=== PATIENT | male | born 1995 | race African-American/Black ===

== ENCOUNTER 2017-06-01 16:35 | Inpatient (IN) | payer BC ==
[~2017-06-01] VITALS: Ht 188 cm; Wt 80.5 kg
[2017-06-01 20:30] VITALS: BP 134/88
[2017-06-01 21:00] VITALS: BP 138/77
[2017-06-01] MEDS ORDERED: TRAMADOL 50MG TABLET PO PRN (21:00)
[2017-06-01] MEDS ORDERED: ONDANSETRON HCL 4MG/2ML VIAL IV PRN (21:00)
[2017-06-01] MEDS ORDERED: DOCUSATE SODIUM 100MG CAPSULE PO PRN (21:58)
[2017-06-01 22:00] VITALS: BP 115/62
[2017-06-01] MEDS ORDERED: ACETAMINOPHEN 650MG/20.3ML UDC PO PRN (22:00)
[2017-06-01] MEDS: LEVETIRACETAM 500MG TABLET PO SCH (22:54)
[2017-06-01 23:00] VITALS: BP 112/65
[2017-06-01] MEDS: ACETAMINOPHEN 325MG TABLET PO PRN (23:13)
[2017-06-02] VITALS (26 sets, daily range): BP systolic 110–155; BP diastolic 54–92
[2017-06-02 06:00] LABS: BASOPHILS % 0.6 % (0.0-2.0); EOSINOPHILS % 3.8 % (0.0-5.0); HEMATOCRIT. 40.3 % (42.0-52.0); HEMOGLOBIN. 14.1 g/dL (14.0-18.0); LYMPHOCYTES % 25.7 % (20.0-50.0); MEAN CORPUSCULAR HEMOGLOBIN 29.9 pg (28.0-32.0); MEAN CORPUSCULAR VOLUME 85.2 fL (80.0-94.0); MEAN PLATELET VOLUME 8.8 fl (7.4-10.4); MONOCYTES % 12.2 % (2.0-8.0); NEUTROPHILS % 57.7 % (40.0-76.0); PLATELET 238 x1000/uL (130-400); RED BLOOD CELL COUNT 4.72 mill/uL (4.7-6.1); RED CELL DISTRIBUTION WIDTH 12.3 % (11.6-14.6)
[2017-06-02 06:06] LABS: INR 1.1; PROTHROMBIN TIME 11.8 sec (9.4-11.6)
[2017-06-02 06:25] LABS: CARBON DIOXIDE 28 mEq/L (21-32); CHLORIDE 107 mEq/L (98-107)
[2017-06-02 07:47] LABS: PHOSPHORUS 3.6 mg/dL (2.5-4.9)
[2017-06-02] MEDS: ENOXAPARIN 40MG/0.4ML SYR SUBCUT SCH (08:04)
[2017-06-02] MEDS: FAMOTIDINE 20MG/2ML VIAL IV SCH (08:10)
[2017-06-02] MEDS: LEVETIRACETAM 500MG TABLET PO SCH ×2 (08:10→20:44)
[2017-06-02] MEDS: IPRATROPIUM/ALBUTEROL 0.5-3(2.5)MG/3ML NEB HHN SCH ×3 (08:59→20:38)
[2017-06-02 10:33] LABS: T4 FREE 1.29 ng/dL (0.76-1.46)
[2017-06-02] MEDS ORDERED: NICARDIPINE 100MCG/ML 10ML VIAL (CATH LAB) IV ONE (13:50)
[2017-06-02] MEDS ORDERED: NITROGLYCERIN 50MCG/ML 10ML VIAL (CATH LAB) IV ONE (13:50)
[2017-06-02] MEDS ORDERED: IOHEXOL-300 100 ML BOTTLE ONE (14:06)
[2017-06-02] MEDS ORDERED: LIDOCAINE HCL 1% 20ML VIAL (Pyxis) INJ ONE (14:06)
[2017-06-02] MEDS ORDERED: MIDAZOLAM HCL 2 MG/2 ML VIAL ONE ×2 (14:13→14:35)
[2017-06-02] MEDS ORDERED: FENTANYL CITRATE/PF 50MCG/ML 2ML VIAL ONE (14:13)
[2017-06-02] MEDS ORDERED: HEPARIN SODIUM 1,000 UNIT/1ML VIAL IV ONE (14:17)
[2017-06-02] MEDS ORDERED: ATROPINE SULFATE 0.1MG/ML 10ML DISP.SYRIN ONE (14:21)
[2017-06-02] MEDS ORDERED: SODIUM CHLORIDE 0.45% 1,000 ML IV SCH (15:15)
[2017-06-02] MEDS ORDERED: ATROPINE SULFATE 1MG/10ML SYR IV PRN (15:15)
[2017-06-02] MEDS ORDERED: ACETAMINOPHEN 325MG TABLET PO PRN (15:15)
[2017-06-02] MEDS: ACETAMINOPHEN 325MG TABLET PO PRN (19:47)
[2017-06-03] VITALS (31 sets, daily range): BP systolic 97–158; BP diastolic 24–104
[2017-06-03] MEDS: IPRATROPIUM/ALBUTEROL 0.5-3(2.5)MG/3ML NEB HHN SCH ×4 (01:04→22:38)
[2017-06-03 06:21] LABS: BASOPHILS % 0.4 % (0.0-2.0); EOSINOPHILS % 3.5 % (0.0-5.0); HEMATOCRIT. 43.4 % (42.0-52.0); MEAN CORPUSCULAR HEMOGLOBIN 29.7 pg (28.0-32.0); MEAN PLATELET VOLUME 8.6 fl (7.4-10.4); MONOCYTES % 11.8 % (2.0-8.0); NEUTROPHILS % 60.3 % (40.0-76.0); PLATELET 262 x1000/uL (130-400); RED BLOOD CELL COUNT 5.04 mill/uL (4.7-6.1); RED CELL DISTRIBUTION WIDTH 12.3 % (11.6-14.6)
[2017-06-03 06:25] LABS: CARBON DIOXIDE 28 mEq/L (21-32); CHLORIDE 103 mEq/L (98-107)
[2017-06-03] MEDS: FAMOTIDINE 20MG/2ML VIAL IV SCH (08:12)
[2017-06-03] MEDS: LEVETIRACETAM 500MG TABLET PO SCH ×2 (08:12→21:53)
[2017-06-03] MEDS: ENOXAPARIN 40MG/0.4ML SYR SUBCUT SCH (08:19)
[2017-06-04] VITALS (29 sets, daily range): BP systolic 69–152; BP diastolic 26–108
[2017-06-04] MEDS: IPRATROPIUM/ALBUTEROL 0.5-3(2.5)MG/3ML NEB HHN SCH ×4 (02:22→20:45)
[2017-06-04] MEDS: LEVETIRACETAM 500MG TABLET PO SCH ×2 (08:04→22:25)
[2017-06-04] MEDS: ENOXAPARIN 40MG/0.4ML SYR SUBCUT SCH (08:06)
[2017-06-04] MEDS: FAMOTIDINE 20MG/2ML VIAL IV SCH (08:12)
[2017-06-04 08:53] LABS: BASOPHILS % 0.7 % (0.0-2.0); EOSINOPHILS % 2.9 % (0.0-5.0); HEMATOCRIT. 46.4 % (42.0-52.0); HEMOGLOBIN. 16.2 g/dL (14.0-18.0); LYMPHOCYTES % 15.6 % (20.0-50.0); MEAN CORPUSCULAR VOLUME 86.1 fL (80.0-94.0); MONOCYTES % 10.7 % (2.0-8.0); NEUTROPHILS % 70.1 % (40.0-76.0); RED BLOOD CELL COUNT 5.39 mill/uL (4.7-6.1); RED CELL DISTRIBUTION WIDTH 12.6 % (11.6-14.6)
[2017-06-04 09:07] LABS: PHOSPHORUS 2.8 mg/dL (2.5-4.9)
[2017-06-04 09:56] LABS: CARBON DIOXIDE 21 mEq/L (21-32); CHLORIDE 103 mEq/L (98-107)
[2017-06-04] MEDS ORDERED: ONDANSETRON HCL 4MG/2ML VIAL IV PRN (10:45)
[2017-06-04] MEDS ORDERED: MEPERIDINE HCL/PF 25MG/ML CPJ IV PRN (10:45)
[2017-06-04] MEDS ORDERED: LABETALOL 5MG/ML SYR 20 MG/4 ML SYRINGE IV PRN (10:45)
[2017-06-04] MEDS ORDERED: HYDROMORPHONE HCL/PF 2MG/ML CPJ IV PRN (10:45)
[2017-06-04 10:58] LABS: MEAN PLATELET VOLUME 8.1 fl (7.4-10.4); PLATELET 313 x1000/uL (130-400)
[2017-06-04 10:59] LABS: PLATELET ESTIMATE NORMAL
[2017-06-04] MEDS ORDERED: LIDOCAINE HCL 1% 20ML VIAL (Pyxis) INJ ONE ×2 (11:58→13:50)
[2017-06-04] MEDS ORDERED: CEFAZOLIN 1000MG PREMIX 100 ML IV ONE (11:58)
[2017-06-04] MEDS ORDERED: GENTAMICIN SULF 40MG/ML 2ML VIAL ONE (11:58)
[2017-06-04] MEDS ORDERED: GENTAMICIN/NS IRRIGATION 500 ML IR ONE (12:00)
[2017-06-04] MEDS ORDERED: FENTANYL CITRATE/PF 50MCG/ML 2ML VIAL ONE (12:27)
[2017-06-04] MEDS ORDERED: MIDAZOLAM HCL 2 MG/2 ML VIAL ONE (12:27)
[2017-06-04] MEDS ORDERED: DEXAMETHASONE 4MG/ML 1ML VIAL ONE (12:50)
[2017-06-04] MEDS ORDERED: ONDANSETRON HCL 4MG/2ML VIAL ONE (12:50)
[2017-06-04] MEDS ORDERED: HYDROMORPHONE HCL/PF 2MG/ML (OR) ONE (13:14)
[2017-06-04] MEDS ORDERED: EPHEDRINE SULFATE 50MG/ML VIAL ONE (14:47)
[2017-06-04] MEDS ORDERED: GLYCOPYRROLATE 0.2 MG/ML 2ML VIAL ONE (15:25)
[2017-06-04] MEDS ORDERED: NEOSTIGMINE METHYLSULFATE 1MG/ML 10 ML VIAL ONE (15:25)
[2017-06-04] MEDS ORDERED: NALOXONE INJ IV PRN (16:15)
[2017-06-04] MEDS ORDERED: HYDROMORPHONE PCA 10MG/50ML IV PRN (16:15)
[2017-06-04] MEDS ORDERED: ONDANSETRON INJ IV PRN (16:15)
[2017-06-04] MEDS ORDERED: DIPHENHYDRAMINE INJ IV PRN (16:15)
[2017-06-05] VITALS (28 sets, daily range): BP systolic 102–139; BP diastolic 48–82
[2017-06-05] MEDS: IPRATROPIUM/ALBUTEROL 0.5-3(2.5)MG/3ML NEB HHN SCH ×3 (01:53→20:07)
[2017-06-05 04:37] LABS: BASOPHILS % 0.2 % (0.0-2.0); EOSINOPHILS % 0.9 % (0.0-5.0); HEMATOCRIT. 42.9 % (42.0-52.0); HEMOGLOBIN. 15.1 g/dL (14.0-18.0); LYMPHOCYTES % 14.2 % (20.0-50.0); MEAN CORPUSCULAR HEMOGLOBIN 30.4 pg (28.0-32.0); MEAN CORPUSCULAR VOLUME 86.3 fL (80.0-94.0); MEAN PLATELET VOLUME 7.9 fl (7.4-10.4); MONOCYTES % 11.6 % (2.0-8.0); NEUTROPHILS % 73.1 % (40.0-76.0); PLATELET 298 x1000/uL (130-400); RED BLOOD CELL COUNT 4.98 mill/uL (4.7-6.1); RED CELL DISTRIBUTION WIDTH 12.5 % (11.6-14.6)
[2017-06-05 05:01] LABS: CARBON DIOXIDE 27 mEq/L (21-32); CHLORIDE 101 mEq/L (98-107)
[2017-06-05] MEDS: FAMOTIDINE 20MG/2ML VIAL IV SCH (08:39)
[2017-06-05] MEDS: LEVETIRACETAM 500MG TABLET PO SCH ×2 (08:39→20:04)
[2017-06-05] MEDS: TRAMADOL 50MG TABLET PO PRN ×3 (10:07→18:17)
[2017-06-05] MEDS: HYDROCODONE/ACETAMINOPHEN 5/325MG TABLET PO PRN (20:05)
[2017-06-06] VITALS (8 sets, daily range): BP systolic 102–138; BP diastolic 51–77
[2017-06-06] MEDS: IPRATROPIUM/ALBUTEROL 0.5-3(2.5)MG/3ML NEB HHN SCH ×3 (03:04→19:31)
[2017-06-06] MEDS: HYDROCODONE/ACETAMINOPHEN 5/325MG TABLET PO PRN ×4 (03:19→23:37)
[2017-06-06] MEDS: LEVETIRACETAM 500MG TABLET PO SCH ×2 (08:38→20:58)
[2017-06-06] MEDS: FAMOTIDINE 20MG/2ML VIAL IV SCH (08:38)
[2017-06-07 00:02] VITALS: BP 116/63
[2017-06-07] MEDS: IPRATROPIUM/ALBUTEROL 0.5-3(2.5)MG/3ML NEB HHN SCH (02:41)
[2017-06-07 04:00] VITALS: BP 106/59
[2017-06-07] MEDS: HYDROCODONE/ACETAMINOPHEN 5/325MG TABLET PO PRN ×2 (04:33→09:53)
[2017-06-07 08:03] VITALS: BP 124/63
[2017-06-07] MEDS: LEVETIRACETAM 500MG TABLET PO SCH (08:58)
[2017-06-07] MEDS: FAMOTIDINE 20MG/2ML VIAL IV SCH (08:59)
[2017-06-07 09:38] VITALS: BP 124/63
[2017-06-07 10:00] VITALS: BP 128/73
== END 2017-06-07 11:05 | disposition home or self-care (01) | DRG 245 ==
LOC: EEVIPCON 20:04 → CVICU 20:04 → 3WST 06-05 15:46
PROVIDERS: ADMIT Hospitalist; ATTEND Hospitalist
PROC: 4A023N7 Measurement of Cardiac Sampling and Pressure, Left Heart, Percutaneous Approach (ICD-10-PCS; principal; 2017-06-02)
PROC: B2111ZZ Fluoroscopy of Multiple Coronary Arteries using Low Osmolar Contrast (ICD-10-PCS; 2017-06-02)
PROC: B2151ZZ Fluoroscopy of Left Heart using Low Osmolar Contrast (ICD-10-PCS; 2017-06-02)
PROC: 0JH608Z Insertion of Defibrillator Generator into Chest Subcutaneous Tissue and Fascia, Open Approach (ICD-10-PCS; 2017-06-04)
PROC: 0JH60PZ Insertion of Cardiac Rhythm Related Device into Chest Subcutaneous Tissue and Fascia, Open Approach (ICD-10-PCS; 2017-06-04)
DX: I49.01 Ventricular fibrillation (principal); J96.01 Acute respiratory failure with hypoxia; R57.9 Shock, unspecified; G93.1 Anoxic brain damage, not elsewhere classified; R56.9 Unspecified convulsions; J45.909 Unspecified asthma, uncomplicated; I46.9 Cardiac arrest, cause unspecified
CPT/HCPCS: 33270; 36415; 71010; 80048; 83735; 84100; 84439; 84443; 85025; 85610; 93005; 93306; 93458; 94640; 94664; 97162; 97165; C1769; C1887; C1892; C1893; J0171; J0461; J0690; J1100; J1170; J1580; J1644; J2250; J2405; J2710; J3010; J3490; J7030; J7050; J7070; J7620; Q9967

== ENCOUNTER → 2023-09-14 | Day surgery (SDC) | payer BC ==
[~2023-09-14] VITALS: Ht 188 cm; Wt 86.2 kg
[~2023-09-14] MED LIST: ALBU18HF2 IH; CEFAZOLIN SODIUM 1000MG/VIAL ONE; DEXAMETHASONE 4MG/ML 1ML VIAL ONE; DIPHENHYDRAMINE 50MG/ML VIAL ONE; FENTANYL CITRATE/PF 50MCG/ML 2ML VIAL ONE; GENTAMICIN 80MG in SODIUM CHLORIDE IRRIG SOLN 500ML IR SCH; GENTAMICIN SULF 40MG/ML 2ML VIAL ONE; HYDROMORPHONE HCL/PF 2MG/ML CPJ IV PRN; LIDOCAINE HCL 1% 20ML VIAL (Pyxis) INJ ONE; MEPERIDINE HCL/PF 25MG/ML CPJ IV PRN; MIDAZOLAM HCL 2 MG/2 ML VIAL ONE; ONDANSETRON HCL 4MG/2ML INJ IV PRN; ONDANSETRON HCL 4MG/2ML INJ ONE; PROPOFOL 200MG/20ML VIAL IV ONE
[2023-09-14 06:46] LABS: BASOPHILS % 0.5 % (0.0-2.0); EOSINOPHILS % 6.2 % (0.0-5.0); HEMOGLOBIN. 16.2 g/dL (14.0-18.0); LYMPHOCYTES % 31.5 % (20.0-50.0); MEAN CORPUSCULAR HEMOGLOBIN 30.5 pg (28.0-32.0); MEAN CORPUSCULAR HGB CONC 35.1 g/dL (31.0-37.0); MEAN CORPUSCULAR VOLUME 86.9 fL (80.0-94.0); MONOCYTES % 11.2 % (2.0-8.0); NEUTROPHILS % 50.6 % (40.0-76.0); PLATELET 266 x1000/uL (130-400); RED BLOOD CELL COUNT 5.29 mill/uL (4.7-6.1); RED CELL DISTRIBUTION WIDTH 12.9 % (11.6-14.6); WHITE BLOOD COUNT 5.7 x1000/uL (4.5-11.0)
[2023-09-14 07:27] LABS: CALCIUM 9.8 mg/dL (8.7-10.4); CARBON DIOXIDE 28 mEq/L (21-32); CHLORIDE 103 mEq/L (98-107); CREATININE 0.9 mg/dL (0.6-1.3); GLUCOSE 99 mg/dL (70-105); SODIUM 138 mEq/L (136-145); UREA NITROGEN BLOOD 13 mg/dL (9-23)
[2023-09-14] MEDS: MEPERIDINE HCL/PF 25MG/ML CPJ IM NR (11:00)
[2023-09-14] MEDS: FENTANYL CITRATE/PF 50MCG/ML 2ML VIAL IV PRN (14:06)
[2023-09-14 14:43] VITALS: BP 128/70; PULSE 86; RESP 15
[2023-09-14] MEDS: HYDROCODONE/ACETAMINOPHEN 5/325MG TABLET PO PRN (14:43)
== END | disposition home or self-care (01) ==
LOC: CCL 06:08
PROVIDERS: ATTEND Internal Medicine Clinical Cardiac Electrophysiology
DX: Z45.02 Encounter for adjustment and management of automatic implantable cardiac defibrillator (principal); I49.01 Ventricular fibrillation; I46.9 Cardiac arrest, cause unspecified; J45.909 Unspecified asthma, uncomplicated; I25.2 Old myocardial infarction; Z79.899 Other long term (current) drug therapy; Z98.890 Other specified postprocedural states; Z95.810 Presence of automatic (implantable) cardiac defibrillator
CPT/HCPCS: 93005; 80048; 85025; 85610; 85730; 36415; 33262; 71045; C1882; J3010; J0690; J1100; J1200; J1580; J3490; J2250; J2405; J2704; A4565; C1722